=== PATIENT | male | born 1955 | race Hispanic/Latino ===

== ENCOUNTER → 2021-12-27 | Outpatient (CLI) | payer MEDICARE | END | disposition home or self-care (01) | LOC: RAH 14:03 | PROVIDERS: ATTEND Internal Medicine | DX: J32.0 Chronic maxillary sinusitis (principal) | CPT/HCPCS: 70486 ==

== ENCOUNTER → 2022-03-09 | Outpatient (CLI) | payer MEDICARE ==
[2022-03-09 10:41] LABS: CREATININE 1.2 mg/dL (0.5-1.5)
== END | disposition home or self-care (01) ==
LOC: LAB 09:43
PROVIDERS: ATTEND Internal Medicine
DX: I77.1 Stricture of artery (principal)
CPT/HCPCS: 36415; 82565; 84520

== ENCOUNTER → 2022-03-14 | Outpatient (CLI) | payer MEDICARE ==
[~2022-03-14] MED LIST: IOHEXOL 350 MG/ML 100ML INFUS..BTL IV ONE
== END | disposition home or self-care (01) ==
LOC: RAH 03-09 09:24 → EDUNIT# 09:30
PROVIDERS: ATTEND Internal Medicine
DX: I77.1 Stricture of artery (principal)
CPT/HCPCS: 70492; Q9967

== ENCOUNTER → 2025-03-06 | Outpatient (CLI) | payer MEDICARE ==
--- NOTE | 2025-03-11 12:39 | HMCIMG ---
EXAM: CT Abdomen and Pelvis with and without IV contrast CLINICAL HISTORY: LLQ PAIN TECHNIQUE: Thin collimated axial CT images of the abdomen and pelvis were obtained before and after contrast administration of IV contrast. Oral contrast was administered. Sagittal and coronal reformatted images also submitted for interpretation. The total dose length product has been recorded in the electronic medical record. CT scan done according to ALARA (as low as reasonably achievable). COMPARISON: None provided. FINDINGS: LUNG BASES: The lung bases appear clear. No pleural effusions are seen. LIVER: Unremarkable. GALLBLADDER AND BILE DUCTS: 7 mm radiopaque gallstone is present in the region of the neck of the gallbladder. No biliary ductal dilatation is evident. PANCREAS: Unremarkable. SPLEEN: Unremarkable. ADRENAL GLANDS: Unremarkable. KIDNEYS, URETERS, AND BLADDER: The kidneys appear within normal limits. There is no hydronephrosis or hydroureter. No urinary calculi are seen. Bilateral nephrograms are within normal limits. The urinary bladder shows contrast filling bilaterally in delayed images. STOMACH AND BOWEL: Uncomplicated colonic diverticulosis. Mild fecal loading of the colon reflects constipation. Unremarkable appearance of the stomach and bowel. No evidence of bowel obstruction. No evidence suggesting enteritis or colitis. APPENDIX: No evidence of acute appendicitis on CT examination. PERITONEUM: No free fluid. No free air. LYMPH NODES: No lymphadenopathy is evident. REPRODUCTIVE: The prostate is enlarged. VASCULATURE: No evidence of abdominal aortic aneurysm. Atheromatous wall calcifications of the abdominal aorta and its branches. BONES: No aggressive appearing osseous lesion. No acute osseous pathology evident. Multilevel mild spondylosis of the visualized spine. Anterior wedge compression of D12 vertebra. Bilateral small fat-containing inguinal hernias. IMPRESSION: 1. 7 mm gallstone in the region of the gallbladder neck. 2. Uncomplicated colonic diverticulosis. 3. Mild fecal loading of the colon, consistent with constipation. 4. Bilateral small fat-containing inguinal hernias. 5. Prostatomegaly 6. Normal kidneys. No hydronephrosis. /[place]
== END | disposition home or self-care (01) ==
LOC: RAH 07:38
PROVIDERS: ATTEND Internal Medicine Gastroenterology
DX: N40.0 Benign prostatic hyperplasia without lower urinary tract symptoms (principal); K80.20 Calculus of gallbladder without cholecystitis without obstruction; K40.20 Bilateral inguinal hernia, without obstruction or gangrene, not specified as recurrent; K57.30 Diverticulosis of large intestine without perforation or abscess without bleeding; R19.5 Other fecal abnormalities; R10.32 Left lower quadrant pain; I70.0 Atherosclerosis of aorta; M47.817 Spondylosis without myelopathy or radiculopathy, lumbosacral region
CPT/HCPCS: 74178; Q9967